=== PATIENT | male | born 1950 | race Caucasian/White ===

== ENCOUNTER 2016-09-25 11:25 | Outpatient (CLI) | payer MEDICARE, MEDICAID ==
[~2016-09-25 11:25] MED LIST: DOES NOT RECALL MEDS
== END 2016-09-25 23:59 | disposition home or self-care (01) ==
LOC: CARD 11:25
PROVIDERS: ATTEND Internal Medicine Cardiovascular Disease
DX: I65.21 Occlusion and stenosis of right carotid artery (principal)
CPT/HCPCS: 93880-TC

== ENCOUNTER 2016-10-17 10:46 | Outpatient (CLI) | payer MEDICARE, MEDICAID | END 2016-10-17 23:59 | disposition home or self-care (01) | LOC: LAB 10:46 | PROVIDERS: ATTEND Internal Medicine Cardiovascular Disease | DX: I10 Essential (primary) hypertension (principal) | CPT/HCPCS: 36415; 80048-TC ==

== ENCOUNTER 2016-10-19 09:10 | Outpatient (CLI) | payer MEDICARE, MEDICAID ==
[2016-10-19] MEDS ORDERED: IOHEXOL-300 100 ML VIAL IV ONE (09:23)
[2016-10-19] MEDS ORDERED: CT SWABBABLE VALVE TRANS SET 1 EA INFUS.SET MC ONE (09:23)
[2016-10-19] MEDS ORDERED: IV NS 0.9% 250 ML IV ONE (09:23)
== END 2016-10-19 23:59 | disposition home or self-care (01) ==
LOC: CT 09:10
PROVIDERS: ATTEND Internal Medicine Cardiovascular Disease
DX: N20.0 Calculus of kidney (principal); J47.9 Bronchiectasis, uncomplicated; J98.4 Other disorders of lung; E27.8 Other specified disorders of adrenal gland; I70.0 Atherosclerosis of aorta
CPT/HCPCS: 74178; 78452; A9502; J7050; Q9967

== ENCOUNTER 2018-11-27 10:01 | Outpatient (CLI) | payer MEDICARE, OTHER ==
[~2018-11-27] VITALS: Ht 167.6 cm; Wt 66.7 kg
[2018-11-27] MEDS ORDERED: NITROGLYCERIN 0.4 MG/TAB BOTTLE ONE (10:39)
[2018-11-27] MEDS ORDERED: CT SWABBABLE VALVE TRANS SET 1 EA INFUS.SET MC ONE (10:39)
[2018-11-27] MEDS ORDERED: IOHEXOL-350 100 ML VIAL IV ONE (10:39)
[2018-11-27] MEDS ORDERED: METOPROLOL TARTRATE INJ 5 MG/5 ML AMPUL ONE ×3 (10:39→11:57)
[2018-11-27] MEDS ORDERED: IV NS 0.9% 250 ML IV ONE (10:39)
[2018-11-27 11:00] LABS: CALCIUM, SERUM 9.8 mg/dL (8.5-10.1); CREATININE 1.2 mg/dL (0.6-1.3); POTASSIUM 4.4 mmol/L (3.5-5.1)
[2018-11-27] MEDS ORDERED: NITROGLYCERIN 0.4 MG/TAB BOTTLE SL ONE (11:30)
[2018-11-27] MEDS: METOPROLOL TARTRATE INJ 5 MG/5 ML AMPUL IVP PRN ×6 (11:33→11:58)
[2018-11-27 12:30] VITALS: BP 102/68
[2018-11-27 12:45] VITALS: BP_SYST 102; BP_SYST 104; BP_DIAS 68; BP_DIAS 70
== END 2018-11-27 23:59 | disposition home or self-care (01) ==
LOC: CT 10:01
PROVIDERS: ATTEND Internal Medicine Cardiovascular Disease
DX: R07.9 Chest pain, unspecified (principal)
CPT/HCPCS: 36415; 75574; 80048; J3490 ×3; J7050; Q9967